=== PATIENT | female | born 1970 | race Caucasian/White ===

== ENCOUNTER 2019-07-21 | Emergency (ER) | payer OTHER ==
[~2019-07-21] MED LIST: BACTRIM DS1 TAB PO
[2019-07-21] MEDS ORDERED: MULTI VIT PO (05:21)
[2019-07-21] MEDS ORDERED: MEDDOSEPAK PO (06:45)
== END 2019-07-21 07:36 | disposition home or self-care (01) | DRG 607 ==
DX: L27.1 Localized skin eruption due to drugs and medicaments taken internally (principal); R22.0 Localized swelling, mass and lump, head; T38.0X5A Adverse effect of glucocorticoids and synthetic analogues, initial encounter